=== PATIENT | male | born 1980 | race Caucasian/White ===

== ENCOUNTER 2021-11-17 11:07 | Emergency (ER) | payer OTHER ==
[~2021-11-17] VITALS: Ht 180.3 cm; Wt 76.0 kg
[2021-11-17] MEDS ORDERED: ACETAMINOPHEN 325MG TABLET PO STA (11:41)
[2021-11-17] MEDS ORDERED: SODIUM CHLORIDE 0.9% 1,000 ML IV ONE (11:45)
[2021-11-17 12:05] LABS: BASOPHILS % 0.8 % (0.0-2.0); CLARITY URINE CLEAR (CLEAR); COLOR URINE DARK YELLOW (YELLOW); EOSINOPHILS % 2.4 % (0.0-5.0); HEMOGLOBIN. 8.9 g/dL (14.0-18.0); KETONES URINE 1+ (NEGATIVE); LEUKOCYTE ESTERASE URINE TRACE (NEGATIVE); LYMPHOCYTES % 7.7 % (20.0-50.0); MEAN CORPUSCULAR HEMOGLOBIN 21.3 pg (28.0-32.0); MEAN CORPUSCULAR VOLUME 66.7 fL (80.0-94.0); MEAN PLATELET VOLUME 6.7 fl (7.4-10.4); MONOCYTES % 6.1 % (2.0-8.0); NITRITE URINE NEGATIVE (NEGATIVE); OCCULT BLOOD URINE NEGATIVE (NEGATIVE); PLATELET 559 x1000/uL (130-400); PROTEIN URINE TRACE (NEGATIVE); RED BLOOD CELL COUNT 4.19 mill/uL (4.7-6.1); RED CELL DISTRIBUTION WIDTH 25.3 % (11.6-14.6); SPECIFIC GRAVITY URINE 1.026 (1.005-1.030)
[2021-11-17 12:11] LABS: CHLORIDE 99 mEq/L (98-107)
[2021-11-17 12:21] LABS: ETHANOL BLOOD < 10 mg/dL
[2021-11-17] MEDS ORDERED: FERR324T4 MT (13:16)
[2021-11-17 13:48] VITALS: BP 129/64
[2021-11-17 14:04] LABS: PLATELET ESTIMATE INCREASED
[2021-11-17 14:49] LABS: *AMPHETAMINES SCREEN URINE PRESUMTIVE POSITIVE (NEGATIVE); *BARBITURATES SCREEN URINE NEGATIVE (NEGATIVE); *BENZODIAZEPINES SCREEN URINE NEGATIVE (NEGATIVE); *COCAINE SCREEN URINE NEGATIVE (NEGATIVE); CANNABINOID URINE SCREEN PRESUMTIVE POSITIVE (NEGATIVE); METHADONE URINE SCREEN NEGATIVE (NEGATIVE); OPIATES URINE SCREEN NEGATIVE (NEGATIVE); PHENCYCLIDINE URINE SCREEN NEGATIVE (NEGATIVE)
== END 2021-11-17 13:49 | disposition home or self-care (01) ==
LOC: ER 11:44 → EDBD 11:44 → ER 13:49
DX: D64.9 Anemia, unspecified (principal); E86.0 Dehydration; E11.9 Type 2 diabetes mellitus without complications; I10 Essential (primary) hypertension
CPT/HCPCS: 36415; 71045; 80053; 80305; 80320; 81003; 83690; 84484; 85025; 93005; 96360; 99285; J7030; G0480